=== PATIENT | male | born 1970 | race Caucasian/White ===

== ENCOUNTER → 2017-02-12 | Outpatient (CLI) | payer OTHER | LOC: RAD 17:58 | DX: M25.521 Pain in right elbow (principal) | CPT/HCPCS: 73070 ==

== ENCOUNTER → 2021-02-22 | Outpatient (CLI) | payer OTHER ==
[~2021-02-22] MED LIST: AUGMENTIN 875-1 EACH PO; NORCO 5-325 TA1 EACH PO; PREDNISONE20 MG PO; VENTOLIN/PROVE0.5 ML INH; ZOFRAN4 MG PO
== END ==
LOC: KOH-I 14:16
DX: M99.53 Intervertebral disc stenosis of neural canal of lumbar region (principal); M47.816 Spondylosis without myelopathy or radiculopathy, lumbar region; M51.26 Other intervertebral disc displacement, lumbar region; M48.061 Spinal stenosis, lumbar region without neurogenic claudication; M51.27 Other intervertebral disc displacement, lumbosacral region; M48.07 Spinal stenosis, lumbosacral region
CPT/HCPCS: 72148

== ENCOUNTER 2022-01-28 15:30 | Emergency (ER) | payer OTHER ==
[2022-01-28 17:45] LABS: MONONUCLEAR CELLS 75.4 %; POLYMORPHONUCLEAR 24.6 %; RBC (AUTOMATED) 1151800 10^6; WBC (AUTOMATED) 1705 10^3
[2022-01-28] MEDS ORDERED: NAPROSYN500 MG PO (18:45)
== END 2022-01-28 18:49 | disposition home or self-care (01) ==
LOC: ER1 15:30
PROVIDERS: Physician Assistant
DX: M70.51 Other bursitis of knee, right knee (principal); I10 Essential (primary) hypertension; F17.220 Nicotine dependence, chewing tobacco, uncomplicated
CPT/HCPCS: 73564; 82945; 87070; 87205; 89051; 89060; 99283